=== PATIENT | male | born 1955 | race African-American/Black ===

== ENCOUNTER 2017-07-07 21:36 | Emergency (ER) | payer OTHER ==
[~2017-07-07] VITALS: Ht 182.9 cm; Wt 108.6 kg
[~2017-07-07 21:36] MED LIST: AMLODIPINE BESYL5 MG PO; HYDROCHLOROTHIA25 MG PO; MOTRIN800 MG PO; NORCO 5/3251 TABLET PO; PERCOCET 10/1 TABLET PO
[2017-07-07 22:17] LABS: ADD MIUA? NO; BILIRUBIN NEGATIVE; BLOOD NEGATIVE; COLOR STRAW ((YELLOW)); GLUCOSE (STRIP) NEGATIVE; KETONES NEGATIVE; LEUKOCYTES NEGATIVE; NITRITE NEGATIVE; PROTEIN (STRIP) NEGATIVE; SPECIFIC GRAVITY 1.006 (1.000-1.030); UCUL ADDED? NO; UROBILINOGEN 0.2 MG/DL (0.2-1.0)
[2017-07-07 22:24] LABS: EOSINOPHIL (%) 2.4 % (0-5); EOSINOPHIL COUNT 0.2 K/uL (0-0.3); HEMATOCRIT 41.5 % (38.0-50.0); IMMATURE GRANULOCYTE (%) 0.3 % (0.0-0.7); INSTRUMENT ABS NEUTROPHIL CT 5.3 K/uL; LYMPHOCYTE COUNT 3.2 K/uL (1.0-2.8); MCH 31.6 PG (29.0-34.0); MCHC 35.7 G/DL (30.0-36.0); MCV 88.5 FL (86-99); MEAN PLAT.VOLUME 10.3 uM^3 (9.0-12.4); MONOCYTE (%) 10.9 % (3-12); MONOCYTE COUNT 1.1 K/uL (0-0.8); NEUTROPHIL (%) 53.5 % (45-76); NEUTROPHIL COUNT 5.3 K/uL (1.8-6.4); PLATELET COUNT 305 K/uL (156-360); RBC DIS.WIDTH-CV 13.2 % (11.8-14.6); RBC DIS.WIDTH-SD 42.5 % (39-53); RED BLOOD COUNT 4.69 M/uL (4.00-5.50); WHITE BLOOD COUNT 9.8 K/uL (4.1-10.2)
[2017-07-07 22:37] LABS: CHLORIDE 104 mEq/L (99-109); POTASSIUM 3.3 mEq/L (3.7-5.4); SODIUM 138 mEq/L (136-147)
[2017-07-07 22:38] LABS: GLUCOSE 106 mg/dL (70-99)
[2017-07-07 22:40] LABS: ANION GAP 12 MEQ/L (2-14)
[2017-07-07 22:42] LABS: GFR ESTIMATE (CALCULATED) > 59 mL/min/ (58.99-99999)
[2017-07-07 22:43] LABS: UREA NITROGEN (BUN) 9 mg/dL (9-23)
[2017-07-07] MEDS ORDERED: MOTRIN600 MG PO (23:11)
[2017-07-07] MEDS ORDERED: ULTRAM50 MG PO (23:11)
[2017-07-07 23:20] VITALS: BP 157/90
== END 2017-07-07 23:21 | disposition home or self-care (01) ==
LOC: EME 21:36
PROVIDERS: Physician Assistant
DX: R10.32 Left lower quadrant pain (principal); R31.9 Hematuria, unspecified; Z87.442 Personal history of urinary calculi; I10 Essential (primary) hypertension
CPT/HCPCS: 74176; 80048; 81003; 85025; 99281; 99284

== ENCOUNTER → 2017-08-20 | Outpatient (CLI) | payer OTHER ==
[~2017-08-20] VITALS: Ht 182.9 cm; Wt 104.3 kg
[~2017-08-20] MED LIST changes: +ALLOPURINOL100 MG PO; +COLBENEMID1 TABLET PO; +MOTRIN600 MG PO; +ULTRAM50 MG PO
== END | disposition home or self-care (01) ==
LOC: AMB 10:08
DX: K29.50 Unspecified chronic gastritis without bleeding (principal); B96.81 Helicobacter pylori [H. pylori] as the cause of diseases classified elsewhere; B18.2 Chronic viral hepatitis C; I10 Essential (primary) hypertension; R73.01 Impaired fasting glucose; Z82.49 Family history of ischemic heart disease and other diseases of the circulatory system; Z87.891 Personal history of nicotine dependence
CPT/HCPCS: 88305; 88342 TC; 93005; J2250

== ENCOUNTER → 2017-10-16 | Outpatient (CLI) | payer OTHER | END | disposition home or self-care (01) | LOC: NUC 09:52 | DX: M47.892 Other spondylosis, cervical region (principal); M19.012 Primary osteoarthritis, left shoulder; M19.011 Primary osteoarthritis, right shoulder; M17.0 Bilateral primary osteoarthritis of knee; M19.071 Primary osteoarthritis, right ankle and foot; R93.7 Abnormal findings on diagnostic imaging of other parts of musculoskeletal system | CPT/HCPCS: 78306; A9503 ==